=== PATIENT | male | born 1955 | race Caucasian/White ===

== ENCOUNTER → 2019-08-31 10:42 | Outpatient (CLI) | payer BC, SELFPAY ==
[2019-08-31 10:47] LABS: Adenovirus F 40/41, stool Not Detected (NotDetected); Astrovirus Not Detected (NotDetected); Campylobacter Not Detected (NotDetected); Cryptosporidium Not Detected (NotDetected); Cyclospora Cayetanesis Not Detected (NotDetected); Entamoeba histolytica Not Detected (NotDetected); Enteroaggregative E coli Not Detected (NotDetected); Enteropathogenic E coli Not Detected (NotDetected); Enterotoxigenic E coli Not Detected (NotDetected); Giardia lamblia Not Detected (NotDetected); Norovirus Not Detected (NotDetected); Plesimonas Shigalloides, PCR Not Detected (NotDetected); Rotavirus A Not Detected (NotDetected); Salmonella, PCR Not Detected (NotDetected); Sapovirus Not Detected (NotDetected); Shiga-like toxin E coli Not Detected (NotDetected); Shigella Enterovasive E coli Not Detected (NotDetected); Vibrio Cholerae Not Detected (NotDetected); Vibrio, PCR Not Detected (NotDetected); Yersinia Entercolitica, PCR Not Detected (NotDetected)
[2019-08-31 11:04] LABS: Blood Urea Nitrogen 15 mg/dL (7-18); Creatinine,Serum 1.53 mg/dL (0.70-1.30); Estimated Glomerular Filt Rate 46 ml/min (>60); GFR (African American) 56 ML/MIN (>60)
--- NOTE | 2019-08-31 11:11 | CT_ITS ---
PROCEDURE: CT CHEST WO/W CON CLINCAL INDICATION: DIARRHEA,LUNG NODULE Follow-up lung nodule, weight loss, lung nodule COMPARISON: XR CHEST 2V from 08/13/2019 CT ABDOMEN PELVIS W CON from 08/13/2019 TECHNIQUE: IV Contrast: 75ml Optiray 350 Axial images obtained with sagittal and coronal reformats. All CT scans at the facility use one or more dose reduction, viz: automated exposure control, ma/kV adjustment per patient size (including targeted exams where dose is matched to indication, i.e. head), or iterative reconstruction technique. FINDINGS: Prior CABG. No mediastinal or hilar mass or adenopathy. No evidence of aortic aneurysm or central pulmonary embolus. There is a 5 mm noncalcified nodule in the right upper lobe inferiorly, a 5 mm nodule in the right middle lobe a, a 7 mm nodule in the right lung base posteriorly, a 3 mm nodule in the right lung base posteriorly, and a 5 mm nodule in the right lung base posterior laterally. There are also scattered calcified nodules. No effusions or infiltrates. There are degenerative changes of the thoracic spine. Upper abdominal images are unremarkable except for left renal cyst which is incompletely imaged measuring 5.7 cm.. IMPRESSION: There are multiple noncalcified pulmonary nodules as well as multiple small calcified pulmonary nodules. The noncalcified nodules could be secondary to noncalcified granulomas. If the patient does not have a known primary carcinoma, would recommend a six-month follow-up which could be performed without contrast to confirm short term stability as neoplasm cannot be excluded. Dictated by: Rafa Rousseau MD 08/31/2019 14:06 Electronically signed by Rafa Rousseau MD in [facility] 08/31/2019 14:06
[2019-08-31 15:45] LABS: Clostridium Difficile A/B, PCR Detected (NotDetected)
== END ==
PROVIDERS: PCP Internal Medicine Adolescent Medicine; Visit Provider Internal Medicine Adolescent Medicine
DX: R63.4 Abnormal weight loss (principal); R91.1 Solitary pulmonary nodule; N28.9 Disorder of kidney and ureter, unspecified; R19.7 Diarrhea, unspecified
CPT/HCPCS: 36415; 71270; 82565; 84520; 87177; 87507; Q9967

== ENCOUNTER → 2019-09-21 13:22 | Outpatient (CLI) | payer BC, SELFPAY ==
[2019-09-21 15:17] LABS: Free Thyroxine Index 4.2 ug/dL (5.93-13.13); T4 (Thyroxine) 10.7 ug/dl (4.7-13.3); Thyroid Stimulating Hormone 1.61 uIU/ml (0.358-3.740); Triiodothryronine (T3) Uptake 39 % (31-39)
== END ==
PROVIDERS: Visit Provider Internal Medicine Adolescent Medicine
DX: R63.4 Abnormal weight loss (principal); R19.7 Diarrhea, unspecified; N28.9 Disorder of kidney and ureter, unspecified; F33.0 Major depressive disorder, recurrent, mild
CPT/HCPCS: 36415; 84436; 84443; 84479; 84585

== ENCOUNTER → 2021-02-13 11:28 | Outpatient (CLI) | payer BC, SELFPAY ==
--- NOTE | 2021-02-13 11:54 | XR_ITS ---
PROCEDURE: XR CHEST PORTABLE CLINICAL HISTORY: COVID OUTPATIENT COMPARISON: CR XR CHEST 2V from 08/13/[address] CHEST WO/W CON from 08/31/2019 FINDINGS: There are low lung volumes. There has been a prior CABG. Normal heart size. The lungs are clear without infiltrates, suspicious nodules, or pleural effusions. No acute bony abnormalities. IMPRESSION: No acute findings. Dictated by: Rafa Rousseau MD 02/13/2021 12:26 Rafa Rousseau MD in [facility] 02/13/2021 12:26
== END ==
PROVIDERS: PCP Internal Medicine Adolescent Medicine; Visit Provider Internal Medicine Adolescent Medicine
DX: Z20.822 Contact with and (suspected) exposure to COVID-19 (principal); U07.1 COVID-19; R05 Cough
CPT/HCPCS: 71045; U0003

== ENCOUNTER → 2021-02-15 08:17 | Outpatient (CLI) | payer BC, SELFPAY | PROVIDERS: PCP Internal Medicine Adolescent Medicine; Visit Provider Emergency Medicine | DX: U07.1 COVID-19 (principal) | CPT/HCPCS: 96365 ==

== ENCOUNTER → 2021-06-29 11:06 | Outpatient (CLI) | payer BC, SELFPAY ==
[2021-06-29 12:11] LABS: Hemoglobin A1C 11.7 % (4.0-6.0)
[2021-06-29 13:05] LABS: Chloride 103 mmol/L (98-107)
[2021-06-29 13:06] LABS: Potassium 4.3 mmoL/L (3.5-5.1); Sodium 141 mmol/L (136-145)
[2021-06-29 13:08] LABS: Alanine Aminotransferase 16 U/L (12-78); Alkaline Phosphatase 124 U/L (38-126); Aspartate Amino Transferase 22 U/L (17-59); Bilirubin,Total 0.8 mg/dl (0.2-1.3); Blood Urea Nitrogen 14 mg/dl (9-20); Estimated Glomerular Filt Rate 61 ml/min (>60); GFR (African American) 73 ML/MIN (>60)
[2021-06-29 13:09] LABS: Albumin Level 3.9 g/dl (3.5-5.0); Albumin/Globulin Ratio 1.3 (1.1-1.8); Anion Gap 13.3 mEq/L (5-15); Calcium 9.1 mg/dl (8.4-10.2); Carbon Dioxide 29 mmol/L (22.0-30.0); Chol/HDL Ratio 5.1 (1-3.5); Cholesterol 179 mg/dl (140-200); Globulin 3.1 g/dL (1.3-3.2); Glucose 224 mg/dl (74-100); HDL Cholesterol 35 mg/dl (40-60); Triglycerides 337 mg/dl (30-150); VLDL Cholesterol 67 mg/dL (0-40)
[2021-06-29 13:20] LABS: Direct LDL Cholesterol 81.86 mg/dL (100-129)
== END ==
PROVIDERS: Visit Provider Internal Medicine Adolescent Medicine
DX: E78.2 Mixed hyperlipidemia (principal); E11.9 Type 2 diabetes mellitus without complications; Z79.84 Long term (current) use of oral hypoglycemic drugs
CPT/HCPCS: 36415; 80053; 80061; 83036

== ENCOUNTER → 2021-10-02 12:46 | Outpatient (CLI) | payer BC, SELFPAY ==
[2021-10-02 13:20] LABS: Hemoglobin A1C 7.9 % (4.0-6.0)
[2021-10-02 14:28] LABS: Alanine Aminotransferase 15 U/L (12-78); Albumin Level 4.3 g/dl (3.5-5.0); Albumin/Globulin Ratio 1.4 (1.1-1.8); Alkaline Phosphatase 115 U/L (38-126); Anion Gap 14.4 mEq/L (5-15); Aspartate Amino Transferase 24 U/L (17-59); Bilirubin,Total 0.7 mg/dl (0.2-1.3); Blood Urea Nitrogen 21 mg/dl (9-20); Calcium 9.5 mg/dl (8.4-10.2); Carbon Dioxide 28 mmol/L (22.0-30.0); Chloride 101 mmol/L (98-107); Estimated Glomerular Filt Rate 51 ml/min (>60); GFR (African American) 61 ML/MIN (>60); Glucose 196 mg/dl (74-100); Potassium 4.4 mmoL/L (3.5-5.1); Sodium 139 mmol/L (136-145); Total Protein,Serum 7.3 g/dl (6.3-8.2)
== END ==
PROVIDERS: Visit Provider Internal Medicine Adolescent Medicine
DX: E11.9 Type 2 diabetes mellitus without complications (principal); Z79.84 Long term (current) use of oral hypoglycemic drugs
CPT/HCPCS: 36415; 80053; 83036

== ENCOUNTER 2025-06-01 10:51 | Outpatient (CLI) | payer BC, SELFPAY ==
--- NOTE | 2025-06-01 | CA_ITS ---
FINAL REPORT TECHNIQUE: Compression foy scale and Doppler evaluation CLINICAL HISTORY: Patient had his left leg run over by a tractor 3 weeks ago with pain and edema since. He had xrays performed at an outside hospital with no fractures per patient. HTN, HLD, DM. Takes Plavix daily. Hx of colon cancer. FINDINGS: Femoral and popliteal veins show normal compressibility and flow. Visualized portion of the calf veins are patent by Doppler exam. IMPRESSION: No evidence of left lower extremity deep venous thrombosis Reviewed, Interpreted and Dictated by Mayi Vicente MD Transcribed by Gladys Hawthorne Authenticated and [facility]
== END 2025-06-01 23:59 | disposition home or self-care (01) ==
LOC: RT 10:51
PROVIDERS: PCP Nurse Practitioner Family; Visit Provider Nurse Practitioner Family
DX: I10 Essential (primary) hypertension (principal); E78.5 Hyperlipidemia, unspecified; E11.9 Type 2 diabetes mellitus without complications; R60.0 Localized edema; W30.89XA Contact with other specified agricultural machinery, initial encounter; Z85.038 Personal history of other malignant neoplasm of large intestine
CPT/HCPCS: 93971